=== PATIENT | female | born 1960 | race Caucasian/White ===

== ENCOUNTER 2024-10-26 07:00 | Day surgery (SDC) | payer OTHER ==
[2024-10-25 09:00] VITALS: BMI 25.0
[2024-10-26] MEDS ORDERED: EPINEPHrine 0.3 MG in Ophthalmic Irrigation Solution 500 ML IRR SCH (09:30)
[2024-10-26] MEDS ORDERED: Cyclopentolate 1% Opth Drop 2 ML BOT ONE (09:41)
[2024-10-26] MEDS ORDERED: Lidocaine 1% PF 5 ML VIAL ONE (09:43)
[2024-10-26] MEDS ORDERED: PROPOFOL 20 ML ONE (09:43)
[2024-10-26] MEDS ORDERED: Maxitrol 0.1% Opth Oint 3.5 GM TUBE ONE (10:41)
[2024-10-26] MEDS ORDERED: Lidocaine 4% PF 5 ML AMP ONE (10:41)
[2024-10-26] MEDS ORDERED: CEFAZOLIN 1 GM VIAL ONE (10:41)
== END 2024-10-26 11:53 | disposition home or self-care (01) ==
LOC: EDBD → SDC 07:00
PROVIDERS: ATTEND Ophthalmology Retina Specialist
PROC: 08B43ZZ Excision of Right Vitreous, Percutaneous Approach (ICD-10-PCS; principal; 2024-10-26)
DX: H35.371 Puckering of macula, right eye (principal)
CPT/HCPCS: J0166; J0690; J2250; J2704; J3010; J3301; J3490